=== PATIENT | male | born 1945 | race Caucasian/White ===

== ENCOUNTER 2021-01-10 21:04 | Emergency (ER) | payer MEDICARE, MEDICAID ==
[~2021-01-10] VITALS: Ht 180.3 cm; Wt 102.3 kg
[~2021-01-10 21:04] MED LIST: DEPAKOTE ER500 MG PO; FLAGYL500 MG PO; FLOMAX0.4 MG PO; FUROSEMIDE20 MG PO; GLUCOPHAGE500 MG PO; LEVAQUIN750 MG PO; LOMOTIL 2.5-0.1 EAC1 PO; LYRICA150 MG PO; MELATONIN5 MG PO; OMEPRAZOLE40 MG PO; PRESERVISION; ZOCOR40 MG PO; ZOLOFT50 MG PO
[2021-01-10 21:08] VITALS: Ht 180.3 cm; Wt 102.3 kg
[2021-01-10 21:32] LABS: BASOPHILS 0.7 % (0-2); EOSINOPHILS 4.6 % (0-7); HEMATOCRIT 45.1 % (42.0-54.0); IMMATURE GRANULOCYTES 0.2 % (0-5); LYMPHOCYTE ABS# 1.29 10x3/uL (1.32-3.57); LYMPHOCYTES 22.9 % (15-50); MCH 28.7 pg (26.0-34.0); MCHC 33.3 g/dL (31.0-37.0); MCV 86.4 fL (80.0-100.0); MEAN PLATELET VOLUME 9.5 fL (7.4-10.4); MONOCYTES 9.6 % (2-11); NEUTROPHIL ABS# 3.49 10x3/uL (1.78-5.38); RBC 5.22 10x6/uL (4.20-6.10); RDW 14.3 % (11.5-14.5); WBC 5.6 10x3/uL (4.8-10.8)
[2021-01-10 21:38] LABS: CALC OSMOLALITY 281 mosm/kg (275-300); CALCIUM 9.1 mg/dL (8.5-10.1); CARBON DIOXIDE 21.3 mmol/L (21.0-32.0); CHLORIDE - SERUM 103 mmol/L (98-107); CREATININE - SERUM 1.1 mg/dL (0.6-1.3); GLUCOSE 136 mg/dL (74-106); POTASSIUM - SERUM 3.8 mmol/L (3.5-5.1); SODIUM 139 mmol/L (136-145); UREA NITROGEN 17 mg/dL (7-18); eGFR NON AFRICAN AMERICAN 69 mL/min (90-120)
[2021-01-10 21:41] LABS: BILIRUBIN NEGATIVE (NEGATIVE); KETONE NEGATIVE (NEGATIVE); NITRITE NEGATIVE (NEGATIVE); UROBILINOGEN NORMAL mg/dL (< 2)
[2021-01-10 21:42] LABS: BACTERIA MANY HPF (NONE SEEN); WHITE CELLS - URINE 25-50 HPF (0-1)
[2021-01-10 21:42] LABS: PLATELET COUNT 224 10x3/uL (130-400)
[2021-01-10 21:46] LABS: ALBUMIN 3.8 g/dL (3.4-5.0); ALKALINE PHOSPHATASE 100 U/L (30-120); ALT (SGPT) 21 U/L (10-68); AMYLASE - SERUM 75 U/L (25-115); BILIRUBIN - TOTAL 0.51 mg/dL (0.2-1.3); LIPASE 137 U/L (73-393); PROTEIN - SERUM 7.6 g/dL (6.4-8.2)
[2021-01-10 21:47] LABS: TROPONIN-I < 0.017 ng/mL (0.000-0.060)
[2021-01-10] MEDS ORDERED: MACROBID100 MG PO (22:37)
[2021-01-10] MEDS ORDERED: ZOFRAN ODT4 MG/UDTAB PO (22:37)
[2021-01-10 22:56] VITALS: BP 106/61
== END 2021-01-10 22:56 | disposition home or self-care (01) ==
LOC: D.ER 21:04
PROVIDERS: Family Medicine
DX: N39.0 Urinary tract infection, site not specified (principal); R11.2 Nausea with vomiting, unspecified; E11.9 Type 2 diabetes mellitus without complications; Z79.84 Long term (current) use of oral hypoglycemic drugs; Z95.1 Presence of aortocoronary bypass graft; I25.10 Atherosclerotic heart disease of native coronary artery without angina pectoris